=== PATIENT | female | born 1995 | race Caucasian/White ===

== ENCOUNTER → 2022-04-13 | Outpatient (CLI) | payer BC, OTHER ==
[2022-04-15 07:09] LABS: CHLAMYDIA BY NAA Negative (Negative); GONOCOCCUS BY NAA Negative (Negative); TRICH VAG BY NAA Negative (Negative)
== END ==
LOC: LAB SHORT 09:15 → LAB 09:15
PROVIDERS: Registered Nurse Community Health
DX: Z34.91 Encounter for supervision of normal pregnancy, unspecified, first trimester (principal); Z86.32 Personal history of gestational diabetes
CPT/HCPCS: 87491; 87591; 87661

== ENCOUNTER → 2022-09-26 | Outpatient (CLI) | payer BC, OTHER | LOC: LAB 18:56 → LAB SHORT 18:56 | DX: Z34.93 Encounter for supervision of normal pregnancy, unspecified, third trimester (principal); Z3A.00 Weeks of gestation of pregnancy not specified | CPT/HCPCS: 87081; 87150 ==

== ENCOUNTER 2023-02-23 10:04 | Day surgery (SDC) | payer OTHER ==
[2023-02-23] VITALS (11 sets, daily range): BP systolic 89–121; BP diastolic 38–102
[~2023-02-23] VITALS: Ht 156 cm; Wt 89.0 kg
[~2023-02-23 10:04] MED LIST: ALBU90OI; IBUP800 PO; METF500C PO; PANT40 PO; PRENATAL TABLE1 EAC2 PO
--- NOTE | 2023-02-23 11:34 | NUR ---
Ambulatory in Day Surgery. Pre-Op teaching done. Pt verbalizes understanding. Patient States Post-Procedure ride home has been arranged. Patient reports completing Chlorhexadine shower X2 prior to admission to hospital. Lungs clear T/O to Auscultation. Patient confirms NPO status and agrees with scheduled surgery.
--- NOTE | 2023-02-23 13:40 | NUR ---
Discharge instructions reviewed with patient. Patient verbalizes understanding. Copy given to patient to take home. Dressing to procedure site clean, dry, intact with no visible drainage, swelling, erythema or bruising noted.
== END 2023-02-23 14:00 | disposition home or self-care (01) ==
LOC: ORSCMMR 10:04 → ORD 11:30 → ORSCMMR 14:00
PROVIDERS: Obstetrics & Gynecology
PROC: 0UT74ZZ Resection of Bilateral Fallopian Tubes, Percutaneous Endoscopic Approach (ICD-10-PCS; principal; 2023-02-23 11:30)
DX: Z30.2 Encounter for sterilization (principal); N80.30 Endometriosis of pelvic peritoneum, unspecified; J45.909 Unspecified asthma, uncomplicated; Z87.891 Personal history of nicotine dependence; K21.9 Gastro-esophageal reflux disease without esophagitis; Z79.899 Other long term (current) drug therapy
CPT/HCPCS: 82947; 88302; A9270; J0690; J1100; J1885; J2405; J2704; J3010; J7120